=== PATIENT | female | born 1980 | race Caucasian/White ===

== ENCOUNTER 2024-09-07 13:40 | Inpatient (IN) | payer MEDICARE, OTHER ==
[2024-09-07] VITALS (29 sets, daily range): BP systolic 85–157; BP diastolic 55–122; TEMP 97.8–99.5; O2SAT 91–99
[~2024-09-07] VITALS: Ht 152.4 cm; Wt 49.9 kg
[2024-09-07] MEDS ORDERED: LORA-259 PO (13:57)
[2024-09-07] MEDS: IV NORMAL SALINE 1000 ML BAG IV ONE (14:26)
[2024-09-07 14:37] LABS: CALCIUM 8.3 mg/dL (8.5-10.1); CREATININE 0.8 mg/dL (0.6-1.3); POTASSIUM 3.4 mmol/L (3.5-5.1)
[2024-09-07 14:40] LABS: BASOPHILS % (AUTO) 0.3 % (0.0-2.0); EOSINOPHILS % (AUTO) 0.2 % (0.0-7.0); HEMATOCRIT 41.9 % (31.2-41.9); HEMOGLOBIN 13.8 g/dL (10.9-14.3); LYMPHOCYTES # (AUTO) 0.9 K/uL (0.8-4.8); LYMPHOCYTES % (AUTO) 5.9 % (20.5-51.5); MEAN CORPUSCULAR HEMOGLOBIN 30.1 uug (24.7-32.8); MEAN CORPUSCULAR HGB CONC 33 g/dL (32.3-35.6); MEAN CORPUSCULAR VOLUME 91.2 fL (75.5-95.3); MONOCYTES % (AUTO) 0.3 % (0.0-11.0); NEUTROPHILS # (AUTO) 13.7 K/uL (1.8-8.9); NEUTROPHILS % (AUTO) 93.3 % (38.5-71.5); PLATELET COUNT (AUTO) 208 K/uL (179-408); RED BLOOD CELL COUNT(AUTO) 4.59 MIL/uL (3.63-4.92); RED CELL DISTRIBUTION WIDTH 13.5 % (12.3-17.7); WHITE BLOOD COUNT (AUTO) 14.7 K/uL (3.8-11.8)
[2024-09-07 14:41] LABS: DIFFERENTIAL COMMENT 1
[2024-09-07 14:50] LABS: LACTIC ACID 3.2 mmol/L (0.4-2.0)
[2024-09-07] MEDS ORDERED: ALBUTEROL SULFATE 8 GM HFA.AER.AD IH PRN (15:00)
[2024-09-07] MEDS ORDERED: ONDANSETRON 4 MG/2 ML VIAL IV PRN (15:00)
[2024-09-07] MEDS ORDERED: METRONIDAZOLE 500 MG/NS 100ML 100 ML IV ONE (15:02)
[2024-09-07] MEDS ORDERED: CEFTRIAXONE /D5W 50ML IVPB **ER PYXIS IV ONE (15:02)
[2024-09-07] MEDS: IPRATROPIUM BROMIDE 0.5 MG/2.5 ML NEBU NEB ONE (15:05)
[2024-09-07] MEDS: ALBUTEROL SULFATE 2.5 MG/3 ML NEBU NEB ONE (15:05)
[2024-09-07] MEDS ORDERED: IPRATROPIUM BROMIDE 0.5 MG/2.5 ML NEBU ONE (15:06)
[2024-09-07] MEDS ORDERED: ALBUTEROL SULFATE 2.5 MG/3 ML NEBU ONE (15:06)
[2024-09-07] MEDS: CEFTRIAXONE 1 G in IV DEXTROSE 5% 50 ML IV ONE (15:07)
[2024-09-07] MEDS: METRONIDAZOLE 500 MG/NS 100 ML PIGGYBACK IV ONE (15:38)
[2024-09-07] MEDS ORDERED: POTASSIUM BICARBONATE/CIT AC 25 MEQ TABLET.EFF ONE (15:43)
[2024-09-07] MEDS: POTASSIUM BICARBONATE/CIT AC 25 MEQ TABLET.EFF PO ONE (15:50)
[2024-09-07] MEDS ORDERED: POTASSIUM CHLORIDE 0 ML ONE (15:56)
[2024-09-07] MEDS: POTASSIUM CHLORIDE 50 ML IV SCH (16:00)
[2024-09-07] MEDS ORDERED: ATROPINE SULFATE 1 MG/10 ML DISP.SYRIN IV PRN (17:45)
[2024-09-07] MEDS: ADENOSINE 6 MG/2 ML SYR IV ONE ×3 (17:47→18:08)
[2024-09-07 18:02] LABS: ABG BASE EXCESS -7.2 mmol/L (-2.0-3.0); ABG HCO3 18.6 mmol/L (21.0-28.0); ABG PCO2 38.4 mmHg (32.0-45.0); ABG PH 7.302 (7.350-7.450); ABG PO2 135.9 mmHg (83.0-108.0); ABG SITE RIGHT RADIAL; ABG TOTAL HEMOGLOBIN 14.1 G/dL (12.0-16.0); AaDO2 98.5 mmHg; COHb 0.3 % (0.5-1.5); MetHb 0.3 % (0.0-1.5)
[2024-09-07] MEDS: OLANZAPINE 10 MG VIAL IM ONE (18:12)
[2024-09-07] MEDS: LORAZEPAM 2 MG/1 ML VIAL IV ONE (18:31)
[2024-09-07] MEDS: IPRATROPIUM BROMIDE 0.5 MG/2.5 ML NEBU NEB SCH (19:30)
[2024-09-07] MEDS: ACETAMINOPHEN 650 MG SUPP.RECT RC PRN (20:20)
[2024-09-07 20:28] LABS: BILIRUBIN,DIRECT 0.2 mg/dL (0.0-0.2); BILIRUBIN,TOTAL 0.4 mg/dL (0.2-1.0)
[2024-09-07] MEDS: CEFEPIME HCL 1 G in IV DEXTROSE 5% 50 ML IV SCH (21:03)
[2024-09-08] VITALS (33 sets, daily range): BP systolic 86–151; BP diastolic 57–105; TEMP 97.9–99.8; O2SAT 94–100
[2024-09-08 07:03] LABS: HEMATOCRIT 38.4 % (31.2-41.9); LYMPHOCYTES # (AUTO) 1.2 K/uL (0.8-4.8); MEAN CORPUSCULAR HEMOGLOBIN 30.6 uug (24.7-32.8); MEAN CORPUSCULAR HGB CONC 34 g/dL (32.3-35.6); MEAN CORPUSCULAR VOLUME 90.3 fL (75.5-95.3); MONOCYTES # (AUTO) 0.8 K/uL (0.1-1.30); MONOCYTES % (AUTO) 5.4 % (0.0-11.0); NEUTROPHILS # (AUTO) 13.2 K/uL (1.8-8.9); NEUTROPHILS % (AUTO) 86.6 % (38.5-71.5); PLATELET COUNT (AUTO) 199 K/uL (179-408); RED BLOOD CELL COUNT(AUTO) 4.25 MIL/uL (3.63-4.92); RED CELL DISTRIBUTION WIDTH 13.4 % (12.3-17.7); WHITE BLOOD COUNT (AUTO) 15.3 K/uL (3.8-11.8)
[2024-09-08 07:10] LABS: DIFFERENTIAL COMMENT 1
[2024-09-08 07:20] LABS: ALBUMIN 2.8 g/dL (3.4-5.0); BILIRUBIN,TOTAL 0.6 mg/dL (0.2-1.0); CALCIUM 8.8 mg/dL (8.5-10.1); CREATININE 0.7 mg/dL (0.6-1.3); PHOSPHOROUS 4.8 mg/dL (2.5-4.9); POTASSIUM 4.3 mmol/L (3.5-5.1); TOTAL PROTEIN, SERUM 6.7 g/dL (6.4-8.2)
[2024-09-08] MEDS ORDERED: IOHEXOL 350 100 ML INFUS..BTL ONE (12:11)
[2024-09-08] MEDS ORDERED: IV NORMAL SALINE 250 ML IV ONE (12:11)
[2024-09-08] MEDS ORDERED: SWABABLE VALVE TRANSFER SET EA MC ONE (12:11)
[2024-09-08] MEDS: ACETAMINOPHEN 325 MG TABLET PO PRN (18:33)
[2024-09-08] MEDS: ALBUTEROL SULFATE 2.5 MG/ 0.5 ML NEBU NEB PRN (20:08)
[2024-09-08] MEDS ORDERED: PIPERACILLIN/TAZOBACTAM/D5W 100 ML IV ONE (21:50)
[2024-09-08] MEDS: PIPERACILLIN SODIUM/TAZOBACTAM 3.375 G in IV DEXTROSE 5% 50 ML IV SCH (21:53)
[2024-09-09] VITALS (17 sets, daily range): BP systolic 96–165; BP diastolic 66–150; TEMP 97.8–99.5; O2SAT 92–100
[2024-09-09 05:11] LABS: BASOPHILS # (AUTO) 0.1 K/UL (0.0-0.2); BASOPHILS % (AUTO) 0.5 % (0.0-2.0); EOSINOPHILS # (AUTO) 0.1 K/uL (0.0-0.7); HEMOGLOBIN 13.1 g/dL (10.9-14.3); LYMPHOCYTES # (AUTO) 2.1 K/uL (0.8-4.8); LYMPHOCYTES % (AUTO) 16.7 % (20.5-51.5); MEAN CORPUSCULAR HEMOGLOBIN 30.4 uug (24.7-32.8); MEAN CORPUSCULAR HGB CONC 34 g/dL (32.3-35.6); MEAN CORPUSCULAR VOLUME 90.7 fL (75.5-95.3); MONOCYTES # (AUTO) 0.7 K/uL (0.1-1.30); MONOCYTES % (AUTO) 5.4 % (0.0-11.0); NEUTROPHILS # (AUTO) 9.7 K/uL (1.8-8.9); NEUTROPHILS % (AUTO) 76.4 % (38.5-71.5); PLATELET COUNT (AUTO) 200 K/uL (179-408); RED CELL DISTRIBUTION WIDTH 13.6 % (12.3-17.7); WHITE BLOOD COUNT (AUTO) 12.8 K/uL (3.8-11.8)
[2024-09-09 05:21] LABS: DIFFERENTIAL COMMENT 1
[2024-09-09 05:30] LABS: CALCIUM 8.5 mg/dL (8.5-10.1); CREATININE 0.7 mg/dL (0.6-1.3); MAGNESIUM 1.9 mg/dL (1.8-2.4); PHOSPHOROUS 2.6 mg/dL (2.5-4.9); POTASSIUM 3.9 mmol/L (3.5-5.1)
[2024-09-09 06:15] LABS: ABG HCO3 25.2 mmol/L (21.0-28.0); ABG PH 7.475 (7.350-7.450); ABG PO2 101.7 mmHg (83.0-108.0); ABG SITE RIGHT RADIAL; ABG TOTAL HEMOGLOBIN 13.4 G/dL (12.0-16.0); COHb 0.3 % (0.5-1.5); MetHb 0.1 % (0.0-1.5); O2Hb 97.8 % (94.0-98.0)
[2024-09-09] MEDS: PIPERACILLIN SODIUM/TAZOBACTAM 3.375 G in IV DEXTROSE 5% 100 ML IV SCH (14:03)
[2024-09-10] VITALS (12 sets, daily range): BP systolic 100–128; BP diastolic 65–90; TEMP 97.7–100.2; O2SAT 94–99
[2024-09-10 04:46] LABS: BASOPHILS # (AUTO) 0.1 K/UL (0.0-0.2); BASOPHILS % (AUTO) 0.5 % (0.0-2.0); EOSINOPHILS # (AUTO) 0.2 K/uL (0.0-0.7); EOSINOPHILS % (AUTO) 1.7 % (0.0-7.0); HEMATOCRIT 36.1 % (31.2-41.9); HEMOGLOBIN 12.2 g/dL (10.9-14.3); LYMPHOCYTES # (AUTO) 2.6 K/uL (0.8-4.8); LYMPHOCYTES % (AUTO) 21.5 % (20.5-51.5); MEAN CORPUSCULAR HEMOGLOBIN 30.5 uug (24.7-32.8); MEAN CORPUSCULAR HGB CONC 34 g/dL (32.3-35.6); MEAN CORPUSCULAR VOLUME 90.3 fL (75.5-95.3); MONOCYTES # (AUTO) 0.6 K/uL (0.1-1.30); MONOCYTES % (AUTO) 5.3 % (0.0-11.0); NEUTROPHILS # (AUTO) 8.6 K/uL (1.8-8.9); PLATELET COUNT (AUTO) 204 K/uL (179-408); RED CELL DISTRIBUTION WIDTH 13.2 % (12.3-17.7); WHITE BLOOD COUNT (AUTO) 12.1 K/uL (3.8-11.8)
[2024-09-10 04:53] LABS: DIFFERENTIAL COMMENT 1
[2024-09-10 05:07] LABS: CALCIUM 8.9 mg/dL (8.5-10.1); CREATININE 0.6 mg/dL (0.6-1.3); MAGNESIUM 1.7 mg/dL (1.8-2.4); PHOSPHOROUS 3.4 mg/dL (2.5-4.9); POTASSIUM 3.7 mmol/L (3.5-5.1)
[2024-09-10] MEDS: LORAZEPAM 1 MG TABLET PO SCH (10:09)
[2024-09-10] MEDS: MAGNESIUM OXIDE 400 MG TABLET PO ONE (13:03)
[2024-09-11 05:48] VITALS: BP 100/64; TEMP 98.5; O2SAT 96
[2024-09-11 07:32] VITALS: BP 113/68; TEMP 98.2; O2SAT 99
[2024-09-11 07:37] VITALS: O2SAT 98
[2024-09-11 07:52] VITALS: O2SAT 99
[2024-09-11] MEDS ORDERED: AMOX-430 PO (08:20)
== END 2024-09-11 09:57 | disposition home or self-care (01) | DRG 205 ==
LOC: ER 13:40 → CCU 15:31 → TELE-TD3 09-08 03:35 → CCU 09-08 07:45 → TELE3 09-10 16:20
PROVIDERS: ADMIT Internal Medicine; ATTEND Internal Medicine
PROC: 05HB33Z Insertion of Infusion Device into Right Basilic Vein, Percutaneous Approach (ICD-10-PCS; principal; 2024-09-07)
DX: J95.89 Other postprocedural complications and disorders of respiratory system, not elsewhere classified (principal); J69.0 Pneumonitis due to inhalation of food and vomit; J96.01 Acute respiratory failure with hypoxia; J96.02 Acute respiratory failure with hypercapnia; F84.0 Autistic disorder; E87.20 Acidosis, unspecified; Q86.0 Fetal alcohol syndrome (dysmorphic); E87.6 Hypokalemia; R00.0 Tachycardia, unspecified; Z86.718 Personal history of other venous thrombosis and embolism; Y83.8 Other surgical procedures as the cause of abnormal reaction of the patient, or of later complication, without mention of misadventure at the time of the procedure; Y92.530 Ambulatory surgery center as the place of occurrence of the external cause; J45.909 Unspecified asthma, uncomplicated; F41.9 Anxiety disorder, unspecified
CPT/HCPCS: 36415; 36600; 71045; 71275; 83605; 83735; 84100; 84132; 85025; 87040; 93005; 93307; 94640; 94760; A4606; A4663; G0378; J0153; J0461; J0692; J0696; J2060; J2358; J2543; J3480; J3490; J3590; J7040; Q9967